=== PATIENT | male | born 1945 | race Hispanic/Latino ===

== ENCOUNTER → 2019-01-16 | Outpatient (CLI) | payer MEDICARE | END | disposition home or self-care (01) | LOC: RAH 12:46 | PROVIDERS: ATTEND Family Medicine | CPT/HCPCS: 71250 ==

== ENCOUNTER → 2019-01-18 | Outpatient (CLI) | payer MEDICARE | END | disposition home or self-care (01) | LOC: RAH 09:49 | PROVIDERS: ATTEND Family Medicine | DX: R10.13 Epigastric pain (principal) | CPT/HCPCS: 76700 ==

== ENCOUNTER → 2019-03-04 | Outpatient (CLI) | payer MEDICARE | END | disposition home or self-care (01) | LOC: OIH 11:19 | PROVIDERS: ATTEND Family Medicine | DX: K57.30 Diverticulosis of large intestine without perforation or abscess without bleeding (principal); N20.0 Calculus of kidney | CPT/HCPCS: 74176 ==

== ENCOUNTER 2020-10-21 16:30 | Inpatient (IN) | payer MEDICARE, OTHER ==
[~2020-10-21] VITALS: Ht 167.6 cm; Wt 57.4 kg
[2020-10-21] MEDS ORDERED: BISACODYL 10 MG SUPP.RECT RC ONE (16:48)
[2020-10-21 19:19] LABS: BASOPHILS % (AUTO) 0.8 % (0.0-5.0); EOSINOPHILS % (AUTO) 2.6 % (0.0-8.0); LYMPHOCYTES % (AUTO) 12.4 % (21.0-51.0); MEAN CORPUSCULAR HEMOGLOBIN 25.2 pg (27.0-33.0); MEAN CORPUSCULAR HGB CONC 27.3 g/dL (32.0-36.0); MEAN CORPUSCULAR VOLUME 92.3 fL (79-99); MONOCYTES % (AUTO) 3.8 % (3.0-13.0); NEUTROPHILS % (AUTO) 79.8 % (40.0-77.0); PLATELET COUNT (AUTO) 311 K/uL (130-400); RED BLOOD CELL COUNT(AUTO) 4.44 MIL/uL (4.50-6.20); RED CELL DISTRIBUTION WIDTH 20.7 % (11.0-15.5); WHITE BLOOD COUNT (AUTO) 14.3 K/uL (4.8-10.8)
[2020-10-21 19:26] LABS: CREATININE 2.6 mg/dL (0.5-1.5)
[2020-10-21] MEDS ORDERED: DEXTROSE 50%-WATER 50 ML DISP.SYRIN IV ONE ×2 (19:49→19:56)
[2020-10-21] MEDS ORDERED: DEXTROSE 10%-WATER 1,000 ML IV ONE (21:03)
[2020-10-21] MEDS ORDERED: SODIUM CHLORIDE 0.9% 500ML 500 ML IV ONE (21:03)
[2020-10-21 21:21] LABS: APPEARANCE,URINE Clear (CLEAR); BILIRUBIN,URINE Negative (NEGATIVE); COLOR,URINE Yellow (YELLOW); GLUCOSE, URINE (UA) >=1000 mg/dL (NEGATIVE); KETONES,URINE Negative (NEGATIVE); LEUKOCYTE ESTERASE ,URINE Negative (NEGATIVE); NITRATE,URINE Negative (NEGATIVE); OCCULT BLOOD,URINE Negative (NEGATIVE); PH,URINE 7.5 (5.0-8.0); PROTEIN,URINE POS 2+ mg/dL (NEGATIVE)
[2020-10-21 21:32] LABS: BACTERIA,URINE Few /HPF (None Seen); MUCUS,URINE Few LPF (None Seen); SQUAMOUS EPITHELIAL CELL,UR Few /HPF (0-2)
[2020-10-21] MEDS ORDERED: CEFTRIAXONE SODIUM 1 GM ONE (22:34)
[2020-10-22] MEDS ORDERED: ONDANSETRON HCL 4 MG/2 ML VIAL IV PRN
[2020-10-22] MEDS ORDERED: DIPHENHYDRAMINE HCL 25 MG CAPSULE PO PRN
[2020-10-22] MEDS ORDERED: ZOLPIDEM TARTRATE 5 MG TAB PO PRN
[2020-10-22] MEDS ORDERED: HYDRALAZINE HCL 20 MG/ML VIAL IV PRN
[2020-10-22] MEDS ORDERED: GUAIFENESIN-DM 200/20 MG 10 ML PO PRN
[2020-10-22] MEDS ORDERED: MAG HYDROX/AL HYDROX/SIMETH ES 30 ML SUSP UDCUP PO PRN
[2020-10-22] MEDS ORDERED: ACETAMINOPHEN 325 MG TAB PO PRN ×2
[2020-10-22] MEDS ORDERED: LACTULOSE 20 GM/30 ML UDCUP PO PRN
[2020-10-22] MEDS ORDERED: NITROGLYCERIN 0.4 MG SL TAB SL PRN
[2020-10-22] MEDS ORDERED: ACETAMINOPHEN-CODEINE 300/30MG TAB PO PRN ×2
[2020-10-22] MEDS ORDERED: CEFTRIAXONE SODIUM 1 GM IV SCH
[2020-10-22] MEDS ORDERED: BISACODYL 10 MG SUPP.RECT RC ONE
[2020-10-22] MEDS ORDERED: DEXTROSE 5 %-0.45 % NACL 1,000 ML IV SCH
[2020-10-22] MEDS ORDERED: DEXTROSE 50%-WATER 50 ML DISP.SYRIN IV PRN (00:15)
[2020-10-22] MEDS ORDERED: GLUCAGON 1MG KIT 1 MG ML IM PRN (00:15)
[2020-10-22] MEDS: ZOSYN 3.375GM+NS 50ML 50 ML IV SCH ×3 (00:30→23:23)
[2020-10-22] MEDS: DEXTROSE 5%-WATER 1,000 ML IV SCH ×2 (00:30→22:07)
[2020-10-22 01:17] LABS: CREATININE 2.6 mg/dL (0.5-1.5); POTASSIUM 3.9 mmol/L (3.5-5.1)
[2020-10-22] MEDS ORDERED: DEXTROSE 5%-WATER 1,000 ML IV ONE (01:48)
[2020-10-22] MEDS ORDERED: ZOSYN 3.375GM+NS 50ML 50 ML IV ONE ×2 (05:35→13:37)
[2020-10-22 05:37] LABS: BASOPHILS % (AUTO) 0.7 % (0.0-5.0); EOSINOPHILS % (AUTO) 3.2 % (0.0-8.0); MEAN CORPUSCULAR HEMOGLOBIN 24.8 pg (27.0-33.0); MEAN CORPUSCULAR HGB CONC 27.3 g/dL (32.0-36.0); MEAN CORPUSCULAR VOLUME 91.1 fL (79-99); MONOCYTES % (AUTO) 3.5 % (3.0-13.0); PLATELET COUNT (AUTO) 282 K/uL (130-400); RED BLOOD CELL COUNT(AUTO) 4.39 MIL/uL (4.50-6.20); RED CELL DISTRIBUTION WIDTH 20.7 % (11.0-15.5); WHITE BLOOD COUNT (AUTO) 11.7 K/uL (4.8-10.8)
[2020-10-22 05:52] LABS: CREATININE 2.4 mg/dL (0.5-1.5); POTASSIUM 3.7 mmol/L (3.5-5.1)
[2020-10-22] MEDS ORDERED: DEXTROSE 50%-WATER 50 ML DISP.SYRIN IV ONE ×2 (06:01→19:02)
[2020-10-22] MEDS: INSULIN HUMULIN R 100 UNIT/ML 3ML SQ SCH ×3 (07:30→16:30)
[2020-10-22] MEDS ORDERED: FAMOTIDINE/PF 20 MG/2 ML VIAL IV ONE (08:51)
[2020-10-22] MEDS ORDERED: ENOXAPARIN SODIUM 30 MG/0.3 ML SQ ONE (08:51)
[2020-10-22] MEDS ORDERED: ENOXAPARIN SODIUM 30 MG/0.3 ML SQ SCH (09:00)
[2020-10-22] MEDS: FAMOTIDINE/PF 20 MG/2 ML VIAL IV SCH ×2 (09:00→22:08)
[2020-10-22 10:15] LABS: BASOPHILS % (AUTO) 0.8 % (0.0-5.0); EOSINOPHILS % (AUTO) 3.3 % (0.0-8.0); HEMATOCRIT 38.6 % (42-54); LYMPHOCYTES % (AUTO) 8.8 % (21.0-51.0); MEAN CORPUSCULAR HGB CONC 27.5 g/dL (32.0-36.0); MONOCYTES % (AUTO) 4.4 % (3.0-13.0); NEUTROPHILS % (AUTO) 82.3 % (40.0-77.0); PLATELET COUNT (AUTO) 251 K/uL (130-400); RED BLOOD CELL COUNT(AUTO) 4.24 MIL/uL (4.50-6.20)
--- NOTE | 2020-10-22 10:43 | NUR ---
SPOKE TO SON JAMES ONT HE PHONE FOR DC PLANNING STATES PATIENT LIVES WITH SPOUSE, AND PRIOR TO CANCER DIAGNOSIS LAST MONTH, WAS INDEPENDENT, ACTIVE, NO DME EXCEPT SHOWER CHAIR, GOES TO [place] [facility] WHO HAS SET HIM UP WITH TRANSPORT CHAIR, HOSPITAL BED, 3 IN 1 CHAIR; HAS HOME [employer] FOR PEG TUBE AND PROVIDER FOR BATHING. FAMILY SUPPORTIVE AND PROVIDES TRANSPORT. SON UNDERSTANDS PATIENT IS VERY ILL. FAMILY IS WAITING FOR PEG SITE TO HEAL SO PATIENT CAN HAVE PALLIATIVE CHEMO . CM TO FOLLOW. ((CODE STATES/HOSPICE/ END OF LIFE NOT ADDRESSED DURING THIS CONVERSATION, CM DID ADVISE SON THAT CM/SW WOULD BE CONTACTING PT/FAMILY AGAIN FOR DISCHARGE PLANNING . PATIENT WITH CRITICAL ELECTROLYTES AND INCREASED METS ON THIS ADMISSION Addendum: 10/22/20 at 1051 by MARY GERARD RN CM Amended: Links added.
[2020-10-22 11:14] LABS: ALBUMIN 2.3 g/dL (3.5-5.0); BILIRUBIN,TOTAL 0.5 mg/dL (0.2-1.0); CREATININE 2.5 mg/dL (0.5-1.5); POTASSIUM 4.1 mmol/L (3.5-5.1); TOTAL PROTEIN, SERUM 7.1 g/dL (6.0-8.3)
[2020-10-22] MEDS ORDERED: VANCOMYCIN PROTOCOL PER PHARMACY IV SCH (12:00)
[2020-10-22] MEDS ORDERED: DIATR MEGLU/DIATRIZOATE SODIUM 30 ML BOTTLE ONE (12:01)
[2020-10-22 14:51] LABS: BASOPHILS % (AUTO) 1.2 % (0.0-5.0); EOSINOPHILS % (AUTO) 3.5 % (0.0-8.0); HEMATOCRIT 40.1 % (42-54); LYMPHOCYTES % (AUTO) 7.4 % (21.0-51.0); MEAN CORPUSCULAR HGB CONC 27.4 g/dL (32.0-36.0); MEAN CORPUSCULAR VOLUME 91.1 fL (79-99); MONOCYTES % (AUTO) 3.8 % (3.0-13.0); NEUTROPHILS % (AUTO) 83.7 % (40.0-77.0); NUCLEATED RED BLOOD CELLS 0.1 % (0.0-0.19); PLATELET COUNT (AUTO) 262 K/uL (130-400); RED CELL DISTRIBUTION WIDTH 20.6 % (11.0-15.5); WHITE BLOOD COUNT (AUTO) 14.7 K/uL (4.8-10.8)
[2020-10-22] MEDS: VANCOMYCIN 1GM+NS 250ML 250 ML IV SCH (15:00)
[2020-10-22 15:08] LABS: CREATININE 2.6 mg/dL (0.5-1.5)
[2020-10-22] MEDS: DOXYCYCLINE 100MG+NS 250ML 250 ML IV SCH (16:15)
[2020-10-22 16:29] LABS: ABG BASE EXCESS 4.3 mmol/L (-2.0-3.0); ABG HCO3 29.9 mmol/L (21.0-28.0); ABG OXYGEN SATURATION 86.7 % (95.0-99.0); ABG PCO2 48 mmHg (35-48)
[2020-10-22] MEDS ORDERED: VANCOMYCIN 1GM+NS 250ML 250 ML IV ONE (18:11)
[2020-10-22 18:30] LABS: BASOPHILS % (AUTO) 1.1 % (0.0-5.0); EOSINOPHILS % (AUTO) 3.5 % (0.0-8.0); HEMATOCRIT 42.2 % (42-54); LYMPHOCYTES % (AUTO) 9.3 % (21.0-51.0); MEAN CORPUSCULAR HEMOGLOBIN 25.1 pg (27.0-33.0); MEAN CORPUSCULAR HGB CONC 27.5 g/dL (32.0-36.0); MEAN CORPUSCULAR VOLUME 91.1 fL (79-99); MONOCYTES % (AUTO) 4.1 % (3.0-13.0); NEUTROPHILS % (AUTO) 81.5 % (40.0-77.0); PLATELET COUNT (AUTO) 287 K/uL (130-400); RED BLOOD CELL COUNT(AUTO) 4.63 MIL/uL (4.50-6.20); RED CELL DISTRIBUTION WIDTH 20.9 % (11.0-15.5); WHITE BLOOD COUNT (AUTO) 15.5 K/uL (4.8-10.8)
[2020-10-22 18:41] LABS: CREATININE 2.7 mg/dL (0.5-1.5); POTASSIUM 4.3 mmol/L (3.5-5.1)
[2020-10-22 20:40] VITALS: BP 140/67
[2020-10-22 23:10] VITALS: BP 124/66
[2020-10-23 03:20] VITALS: BP 130/78
[2020-10-23 03:41] LABS: CREATININE 2.8 mg/dL (0.5-1.5); POTASSIUM 4.2 mmol/L (3.5-5.1)
[2020-10-23] MEDS ORDERED: DOXYCYCLINE 100MG+NS 250ML 250 ML IV ONE (05:00)
[2020-10-23] MEDS: DOXYCYCLINE 100MG+NS 250ML 250 ML IV SCH ×2 (05:28→15:58)
[2020-10-23] MEDS: INSULIN HUMULIN R 100 UNIT/ML 3ML SQ SCH ×5 (05:30→23:50)
[2020-10-23 07:04] LABS: BASOPHILS % (AUTO) 1.3 % (0.0-5.0); EOSINOPHILS % (AUTO) 4.2 % (0.0-8.0); HEMATOCRIT 39.3 % (42-54); MEAN CORPUSCULAR HGB CONC 27.5 g/dL (32.0-36.0); MONOCYTES % (AUTO) 3.4 % (3.0-13.0); NEUTROPHILS % (AUTO) 80.4 % (40.0-77.0); PLATELET COUNT (AUTO) 238 K/uL (130-400); RED BLOOD CELL COUNT(AUTO) 4.32 MIL/uL (4.50-6.20); RED CELL DISTRIBUTION WIDTH 20.5 % (11.0-15.5); WHITE BLOOD COUNT (AUTO) 12.3 K/uL (4.8-10.8)
[2020-10-23 07:17] LABS: APPEARANCE,URINE CLEAR (CLEAR); BILIRUBIN,URINE NEGATIVE (NEGATIVE); COLOR,URINE YELLOW (YELLOW); GLUCOSE, URINE (UA) NEGATIVE (NEGATIVE); KETONES,URINE NEGATIVE (NEGATIVE); LEUKOCYTE ESTERASE ,URINE TRACE (NEGATIVE); NITRATE,URINE NEGATIVE (NEGATIVE); OCCULT BLOOD,URINE SMALL (NEGATIVE); PROTEIN,URINE 100 mg/dL (NEGATIVE); UROBILINOGEN,URINE 0.2 mg/dL (0.2-1.0)
[2020-10-23 07:25] LABS: BILIRUBIN,TOTAL 0.6 mg/dL (0.2-1.0); CREATININE 2.9 mg/dL (0.5-1.5); MAGNESIUM 2.7 mg/dL (1.80-2.40); PHOSPHORUS 6.1 mg/dL (2.5-4.9); POTASSIUM 4.3 mmol/L (3.5-5.1); TOTAL PROTEIN, SERUM 6.4 g/dL (6.0-8.3)
[2020-10-23 07:25] LABS: CHLORIDE,URINE RANDOM 30 mmol/L (110-250); POTASSIUM,URINE RANDOM 57 mmol/L (25-125); SODIUM,URINE RANDOM 30 mmol/l (40-220)
[2020-10-23 07:57] LABS: AMORPHOUS SEDIMENT,UR Few /LPF (None Seen); BACTERIA,URINE Few /HPF (None Seen); FINE GRANULAR CASTS,URINE 0-2 /LPF (None Seen); RBC,URINE 0-1 /HPF (0-1); SQUAMOUS EPITHELIAL CELL,UR 0-2 /HPF (0-2)
[2020-10-23 08:00] VITALS: BP 149/59
[2020-10-23] MEDS: THIAMINE HCL 100 MG/ML 2ML VIAL IVP SCH (09:13)
[2020-10-23] MEDS: PANTOPRAZOLE 40 MG/VIAL IVP SCH (09:13)
[2020-10-23 09:52] LABS: MEAN CORPUSCULAR HEMOGLOBIN 24.9 pg (27.0-33.0); MEAN CORPUSCULAR HGB CONC 27.6 g/dL (32.0-36.0); RED BLOOD CELL COUNT(AUTO) 4.22 MIL/uL (4.50-6.20); RED CELL DISTRIBUTION WIDTH 20.6 % (11.0-15.5); WHITE BLOOD COUNT (AUTO) 11.4 K/uL (4.8-10.8)
[2020-10-23 10:04] LABS: POTASSIUM 4.2 mmol/L (3.5-5.1)
--- NOTE | 2020-10-23 10:43 | NUR ---
DR. Cindy RAMIREZ IN ROOM SPEAKING WITH PT. RE:PLAN OF CARE, QUESTIONS ANSWERED. PT. DOES NOT WISH HOSPICE, PER DR. KRAUSE.
[2020-10-23 12:00] VITALS: BP 123/70
[2020-10-23] MEDS: ZOSYN 3.375GM+NS 50ML 50 ML IV SCH ×2 (12:11→23:48)
--- NOTE | 2020-10-23 12:12 | NUR ---
CM NOTE/[facility] [place] [facility] MET WITH PATIENT AND SON, JAMES, AT BEDSIDE. PER PATIENT AND SON, DECLINING HOSPICE SERVICES AT THE MOMENT AND WISHING TO CONTINUE WITH [facility]. ERICK COMPLETED FOR [facility] [place] [facility]. PER RAISA AT [facility], PATIENT ACCEPTED A RETURN TO SERVICE. CLINICAL PACKET FAXED TO [phone]. PATIENT TO DC HOME VIA PRIVATE VEHICLE UNDER CARE OF FAMILY AND HOME HEALTH, POSSIBLE DC HOME IN 24-48HR D/T ELECTROLYTE DISFUNCTION. PRIMARY NURSE, JOSE JUAN ANDRES, AWARE OF DC PLAN.
--- NOTE | 2020-10-23 12:16 | NUR ---
CM NOTE/ALTERNATIVE PHONE NUMBERS PER SON, JAMES CLEMENTE JR, MAY REACH OUT TO PATIENTS SPOUSE CELL PHONE AT [phone]. ALTERNATIVE NEXT OF KIN #3 IS MALVIN CLEMENTE, PATIENTS OTHER SON, .
[2020-10-23] MEDS: DEXTROSE 5%-WATER 1,000 ML IV SCH (13:17)
[2020-10-23 14:07] LABS: HEMATOCRIT 38.6 % (42-54)
[2020-10-23 14:21] LABS: CREATININE 3.3 mg/dL (0.5-1.5); POTASSIUM 4.2 mmol/L (3.5-5.1)
[2020-10-23 16:00] VITALS: BP 123/75
--- NOTE | 2020-10-23 17:18 | NUR ---
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 AWAITING RESPONSE.
[2020-10-23 18:09] LABS: HEMATOCRIT 39.8 % (42-54)
[2020-10-23 18:23] LABS: CREATININE 3.4 mg/dL (0.5-1.5); POTASSIUM 4.3 mmol/L (3.5-5.1)
--- NOTE | 2020-10-23 19:45 | NUR ---
PM Assessment Received pt awake in bed with son t the bedside who brought in their own feeding formula Osmolite 1.5cal. Initiated as per report OK to start with home formula at 20cc/hr increase by 10cc every 5 hours per son at the bedside stated max rate at home is as 55cc/hr. I did explained to the pt & son that we will be giving the pt water flushes Q 6 hours 150cc & continue with H&H, electrolytes monitoring as ordered, due to elevated NA, BUN/Crea. I verified with the son if they have Hydrofera blue that is being use for the mid abdomen incision open wound. Per son stated that the home health takes care of it. dressing re-inforce as it got loosen. J tube surrounding puncture site slightly irritated, cleansed with NS as noted with some gastric drainage, pat dry, cover with 4x4 & slit gauze secure with Medipore tape, J tube secured with a silk suture in place & secured well too with Medipore tape. Per son stated he is looking forward for the pt to start chemo as planed by Dr. Vallejo. Pt currently denies discomfort, aware nothing by mouth, he does his own mouth care by using a swab. Pt also agreed to use a BSC as this time he is connected to a feeding pump & with D5W at 75cc/hr infusing well.
[2020-10-23 20:27] VITALS: BP 138/84
[2020-10-23 21:50] LABS: HEMATOCRIT 37.7 % (42-54)
[2020-10-23 22:02] LABS: CREATININE 3.5 mg/dL (0.5-1.5); POTASSIUM 4.4 mmol/L (3.5-5.1)
[2020-10-23 23:28] VITALS: BP 122/56
[2020-10-24] VITALS (7 sets, daily range): BP systolic 112–126; BP diastolic 65–75
[2020-10-24] MEDS: DEXTROSE 5%-WATER 1,000 ML IV SCH ×2 (00:21→13:21)
--- NOTE | 2020-10-24 02:00 | NUR ---
Re: Osmolite feeding Osmolite 1.5cal feeding via J tube increased to 30cc/hr as ordered. No nausea/ vomiting noted so far.
[2020-10-24 02:02] LABS: HEMATOCRIT 37.1 % (42-54)
[2020-10-24 02:14] LABS: CREATININE 3.7 mg/dL (0.5-1.5); POTASSIUM 3.8 mmol/L (3.5-5.1)
[2020-10-24] MEDS: DOXYCYCLINE 100MG+NS 250ML 250 ML IV SCH ×2 (04:06→17:09)
[2020-10-24] MEDS: INSULIN HUMULIN R 100 UNIT/ML 3ML SQ SCH ×5 (06:00→22:30)
[2020-10-24 08:22] LABS: BASOPHILS % (AUTO) 0.9 % (0.0-5.0); EOSINOPHILS % (AUTO) 4.7 % (0.0-8.0); LYMPHOCYTES % (AUTO) 10.4 % (21.0-51.0); MEAN CORPUSCULAR HEMOGLOBIN 24.8 pg (27.0-33.0); MEAN CORPUSCULAR HGB CONC 28.3 g/dL (32.0-36.0); MEAN CORPUSCULAR VOLUME 87.7 fL (79-99); MONOCYTES % (AUTO) 3.5 % (3.0-13.0); NEUTROPHILS % (AUTO) 79.6 % (40.0-77.0); NUCLEATED RED BLOOD CELLS 0.2 % (0.0-0.19); PLATELET COUNT (AUTO) 241 K/uL (130-400); RED BLOOD CELL COUNT(AUTO) 3.99 MIL/uL (4.50-6.20); RED CELL DISTRIBUTION WIDTH 19.9 % (11.0-15.5); WHITE BLOOD COUNT (AUTO) 9.9 K/uL (4.8-10.8)
[2020-10-24 08:38] LABS: ALBUMIN 1.9 g/dL (3.5-5.0); BILIRUBIN,TOTAL 0.5 mg/dL (0.2-1.0); CREATININE 3.6 mg/dL (0.5-1.5); POTASSIUM 3.9 mmol/L (3.5-5.1); TOTAL PROTEIN, SERUM 5.9 g/dL (6.0-8.3)
[2020-10-24] MEDS: THIAMINE HCL 100 MG/ML 2ML VIAL IVP SCH (09:30)
[2020-10-24] MEDS: PANTOPRAZOLE 40 MG/VIAL IVP SCH (09:30)
[2020-10-24] MEDS: ZOSYN 3.375GM+NS 50ML 50 ML IV SCH (11:56)
--- NOTE | 2020-10-24 14:00 | NUR ---
DR. WYNN IN ROOM SPEAKING WITH PT.
--- NOTE | 2020-10-24 14:16 | NUR ---
RD NOTIFICATION Pt admitted due to electrolyte imbalance. Pt has hx of stomach cancer. As per EMR pt is having tarry stools. LBM 10/24/20. Pt is currently has J-tube with home formula of Osmolite 1.5 running at 30 ml/hr Pt's max rate at home is of 55 ml/hr as per EMR. Pt has CKD as per EMR. Creatinine is of 3.7, GFR 17 Pt's BMI of 20.2 is low for age. Pt has mild-moderate fat/muscle loss Pt is at mild-moderate risk for malnutrition. TF RECOMMENDATIONS FAXED TO [address] RECOMMENDATION: When medically feasible, recommendation of Suplena 1.8 feedings instead of Osmolite due to reduced kidney function Goal rate: 50 ml/hr Water flush recommendation: 155 ml Q4. Monitor electrolytes, hydration and TF tolerance. LABS: BUN 8, NA 153, K 3.8, CL 117, BG 157, TOT CA 8.2, HGB 9.9, ALB 2.0, TOT PRO 6.4 Addendum: 10/24/20 at [address] Amended: Links added.
--- NOTE | 2020-10-24 14:42 | NUR ---
ASSISTED OUT OF BED TO RECLINER AT BEDSIDE PER PT. REQUEST. CALL LIGHT WITHIN REACH, INSTRUCTED ON USE AND VERBALIZED UNDERSTANDING. ROOM DOOR OPEN, VISIBLE FROM NURSE'S STATION.
[2020-10-24] MEDS: VANCOMYCIN 1GM+NS 250ML 250 ML IV SCH (15:07)
--- NOTE | 2020-10-24 16:10 | NUR ---
ASSISTED BACK TO BED FROM RECLINER PER PT. REQUEST. CALL LIGHT WITHIN REACH, VERBALIZED ABILITY TO USE. SPOUSE AT BESIDE.
[2020-10-24] MEDS: INSULIN GLARGINE 100 UNITS/ML 10 ML VIAL SQ SCH (22:30)
[2020-10-25] MEDS: ZOSYN 3.375GM+NS 50ML 50 ML IV SCH ×2 (01:16→12:02)
[2020-10-25] MEDS: DEXTROSE 5%-WATER 1,000 ML IV SCH ×3 (01:16→16:35)
[2020-10-25 04:00] VITALS: BP 127/62
[2020-10-25] MEDS: DOXYCYCLINE 100MG+NS 250ML 250 ML IV SCH ×2 (04:45→16:36)
[2020-10-25] MEDS: INSULIN HUMULIN R 100 UNIT/ML 3ML SQ SCH ×5 (05:06→18:00)
[2020-10-25 05:55] LABS: BASOPHILS % (AUTO) 0.7 % (0.0-5.0); EOSINOPHILS % (AUTO) 3.9 % (0.0-8.0); HEMATOCRIT 33.1 % (42-54); MEAN CORPUSCULAR HEMOGLOBIN 25.1 pg (27.0-33.0); MEAN CORPUSCULAR HGB CONC 28.7 g/dL (32.0-36.0); MEAN CORPUSCULAR VOLUME 87.3 fL (79-99); MONOCYTES % (AUTO) 3.5 % (3.0-13.0); NEUTROPHILS % (AUTO) 79.8 % (40.0-77.0); NUCLEATED RED BLOOD CELLS 0.3 % (0.0-0.19); PLATELET COUNT (AUTO) 243 K/uL (130-400); RED BLOOD CELL COUNT(AUTO) 3.79 MIL/uL (4.50-6.20); RED CELL DISTRIBUTION WIDTH 19.5 % (11.0-15.5); WHITE BLOOD COUNT (AUTO) 10.5 K/uL (4.8-10.8)
[2020-10-25 06:24] LABS: ALBUMIN 1.7 g/dL (3.5-5.0); BILIRUBIN,TOTAL 0.4 mg/dL (0.2-1.0); CREATININE 3.3 mg/dL (0.5-1.5); POTASSIUM 3.7 mmol/L (3.5-5.1); TOTAL PROTEIN, SERUM 5.5 g/dL (6.0-8.3)
[2020-10-25 07:21] VITALS: BP 126/64
[2020-10-25] MEDS: THIAMINE HCL 100 MG/ML 2ML VIAL IVP SCH (09:30)
[2020-10-25] MEDS: PANTOPRAZOLE 40 MG/VIAL IVP SCH (09:30)
[2020-10-25 10:45] VITALS: BP 119/64
--- NOTE | 2020-10-25 10:45 | NUR ---
Dr. Cindy Pizarro in room informing pt. and pt.'s spouse at bedside Re:plan of care, EXTENSIVELY and ALL questions answered, verbalized mutual understanding. Pt. and spouse verbalized NO additional questions at this time. This nurse present and served as conference interpreter.
--- NOTE | 2020-10-25 11:16 | NUR ---
David LYNCH NP, IN ROOM SPEAKING WITH PT. AND PT.'S SPOUSE AT BEDSIDE RE:PLAN OF CARE. QUESTIONS ANSWERED BY PROFESSIONAL NURSING ASSISTANT.
[2020-10-25 15:41] VITALS: BP 111/59
[2020-10-25 18:11] LABS: CREATININE 3.1 mg/dL (0.5-1.5); POTASSIUM 3.6 mmol/L (3.5-5.1)
[2020-10-25 20:06] VITALS: BP 114/56
[2020-10-25] MEDS: INSULIN GLARGINE 100 UNITS/ML 10 ML VIAL SQ SCH (21:39)
[2020-10-25 23:39] VITALS: BP 104/56
[2020-10-26] MEDS: ZOSYN 3.375GM+NS 50ML 50 ML IV SCH (00:45)
[2020-10-26] MEDS: INSULIN HUMULIN R 100 UNIT/ML 3ML SQ SCH ×4 (00:46→18:00)
[2020-10-26 03:50] VITALS: BP 109/55
[2020-10-26 05:25] LABS: BASOPHILS % (AUTO) 0.5 % (0.0-5.0); EOSINOPHILS % (AUTO) 2.5 % (0.0-8.0); HEMATOCRIT 33.7 % (42-54); LYMPHOCYTES % (AUTO) 8.9 % (21.0-51.0); MEAN CORPUSCULAR HEMOGLOBIN 24.9 pg (27.0-33.0); MEAN CORPUSCULAR HGB CONC 28.8 g/dL (32.0-36.0); MEAN CORPUSCULAR VOLUME 86.4 fL (79-99); NEUTROPHILS % (AUTO) 82.1 % (40.0-77.0); PLATELET COUNT (AUTO) 250 K/uL (130-400); RED CELL DISTRIBUTION WIDTH 19.4 % (11.0-15.5); WHITE BLOOD COUNT (AUTO) 12.8 K/uL (4.8-10.8)
[2020-10-26] MEDS: DEXTROSE 5%-WATER 1,000 ML IV SCH ×2 (05:34→19:35)
[2020-10-26 05:55] LABS: ALBUMIN 1.6 g/dL (3.5-5.0); BILIRUBIN,TOTAL 0.4 mg/dL (0.2-1.0); CREATININE 2.9 mg/dL (0.5-1.5); MAGNESIUM 1.9 mg/dL (1.80-2.40); POTASSIUM 3.5 mmol/L (3.5-5.1); TOTAL PROTEIN, SERUM 5.7 g/dL (6.0-8.3)
[2020-10-26 09:21] VITALS: BP 112/55
--- NOTE | 2020-10-26 10:00 | NUR ---
DYSPHAGIA EVAL COMPLETED. RECOMMEND PLEASURE FEEDS OF PUREED AND HONEY-THICK LIQUIDS. RECOMMENDATIONS: DYSPHAGIA THERAPY 1-5X WEEK TO INCREASE PHARYNGEAL SWALLOW: LTG#1: Pt WILL TOLERATE LEAST RESTRICTIVE DIET TO MEET NUTRITION/HYDRATION WITH NO S/S OF ASPIRATION. LTG#2: SKILLED EDUCATION Pt/FAMILY/STAFF STG#1: Pt WILL PARTICIPATE IN PLEASURE FEEDS OF PUREED, HONEY-THICK LIQUIDS WITH NO S/S OF ASPIRATION. STG#2: PT WILL BE ABLE TO PARTICIPATE IN MBSS AFTER 2-4 WEEKS OF THERAPEUTIC INTERVENTION. STG#3: SKILLED EDUCATION Pt/FAMILY/STAFF. STG#4: Pt WILL UTILIZE SAFE SWALLOW PRECAUTIONS INDEPENDENTLY WITH 100% ACCURACY. LAST MBSS AT [facility] RECOMMENDED MECHANICAL SOFT, HONEY-THICK LIQUIDS. COSTUMER TO ATTEMPT TO RESUME PLEASURE FEEDS OF HONEY-THICK LIQUIDS. COSTUMER COORDINATED CARE WITH NURSE RODRIGUEZ, Pt AND . ALL QUESTIONS ANSWERED AT THIS TIME. Addendum: 10/26/20 at [address] Amended: Links added.
[2020-10-26] MEDS: THIAMINE HCL 100 MG/ML 2ML VIAL IVP SCH (11:00)
[2020-10-26] MEDS: PANTOPRAZOLE 40 MG/VIAL IVP SCH (11:00)
[2020-10-26 12:04] VITALS: BP 113/44
--- NOTE | 2020-10-26 15:55 | NUR ---
RD FOLLOW UP Pt is currently on Suplena 1.8 at 50 ml/hr Water flush 150 ml Q4 as per RN Pt tolerating J-tube feedings. Pt is having watery/loose stools 2x since AM shift. As per pt he was having watery stools at home. Pt is on IV fluids and water flush. Sodium and Chloride are trending down As per EMR, pt was receiving 150 ml QD water flush at home. As per EMR pt has had a 60 lb wt loss in 6 months. 31% wt change in 6 months = severe unintentional wt loss 69 %UBW= Severe malnutrition RD RECOMMENDATION: Continue current TF regiment at 50 ml/hr Adjust water flush as medically necessary As per VIDEO PRODUCTION SPECIALIST, pt is allowed pleasure feeds of puree consistency with honey thick liquids Monitor for signs of aspiration with pleasure feedings RD will continue to follow LABS: NA 148, CL 111, ALB 1.6, TOT PRO 5.7, BG 118, TOT CA 7.8, GFR 23, CREAT 2.9 Addendum: 10/26/20 at [address] Amended: Links added.
[2020-10-26 16:29] VITALS: BP 109/48
[2020-10-26 16:53] LABS: CREATININE 2.8 mg/dL (0.5-1.5); POTASSIUM 3.8 mmol/L (3.5-5.1)
--- NOTE | 2020-10-26 17:00 | NUR ---
DR WAKEFIELD AWARE OF CONSULT, STATES WILL SPEAK TO DR VEGA
[2020-10-26 20:02] VITALS: BP 113/67
[2020-10-26] MEDS: INSULIN GLARGINE 100 UNITS/ML 10 ML VIAL SQ SCH (21:00)
[2020-10-26] MEDS: AMOXICILLIN 250 MG/5 ML 80ML BOTTLE JT SCH (22:33)
[2020-10-26 23:07] VITALS: BP 124/64
[2020-10-27 04:13] VITALS: BP 133/57
[2020-10-27 05:25] LABS: BASOPHILS % (AUTO) 0.5 % (0.0-5.0); EOSINOPHILS % (AUTO) 2.2 % (0.0-8.0); HEMATOCRIT 29.2 % (42-54); LYMPHOCYTES % (AUTO) 8.2 % (21.0-51.0); MEAN CORPUSCULAR HEMOGLOBIN 24.9 pg (27.0-33.0); MEAN CORPUSCULAR HGB CONC 29.1 g/dL (32.0-36.0); MEAN CORPUSCULAR VOLUME 85.6 fL (79-99); MONOCYTES % (AUTO) 3.9 % (3.0-13.0); NEUTROPHILS % (AUTO) 83.7 % (40.0-77.0); PLATELET COUNT (AUTO) 238 K/uL (130-400); RED BLOOD CELL COUNT(AUTO) 3.41 MIL/uL (4.50-6.20); RED CELL DISTRIBUTION WIDTH 19.5 % (11.0-15.5); WHITE BLOOD COUNT (AUTO) 13.1 K/uL (4.8-10.8)
[2020-10-27 05:46] LABS: ALBUMIN 1.5 g/dL (3.5-5.0); BILIRUBIN,TOTAL 0.2 mg/dL (0.2-1.0); CREATININE 2.6 mg/dL (0.5-1.5); POTASSIUM 3.6 mmol/L (3.5-5.1); TOTAL PROTEIN, SERUM 5.3 g/dL (6.0-8.3)
[2020-10-27] MEDS: AMOXICILLIN 250 MG/5 ML 80ML BOTTLE JT SCH (06:26)
[2020-10-27] MEDS: INSULIN HUMULIN R 100 UNIT/ML 3ML SQ SCH ×3 (07:19→12:00)
[2020-10-27 08:00] VITALS: BP 101/57
[2020-10-27] MEDS: DEXTROSE 5%-WATER 1,000 ML IV SCH (08:55)
[2020-10-27] MEDS: PANTOPRAZOLE 40 MG/VIAL IVP SCH (10:39)
[2020-10-27] MEDS: THIAMINE HCL 100 MG/ML 2ML VIAL IVP SCH (10:39)
[2020-10-27 11:00] VITALS: BP 138/53
[2020-10-27] MEDS ORDERED: AMOX250L PEG (14:08)
--- NOTE | 2020-10-27 15:03 | NUR ---
DYSPHAGIA TREATMENT COMPLETED. RECOMMEND PLEASURE FEEDS OF PUREED AND HONEY-THICK LIQUIDS. S: Pt RAISED TO 90 DEGREES IN BED DURING THE SESSION. PRESENT AT BEDSIDE DURING THE TREATMENT SESSION. O: DYSPHAGIA THERAPY TARGETING PHARYNGEAL SWALLOW: LTG#1: Pt WILL TOLERATE LEAST RESTRICTIVE DIET TO MEET NUTRITION/HYDRATION WITH NO S/S OF ASPIRATION. LTG#2: SKILLED EDUCATION Pt/FAMILY/STAFF STG#1: Pt WILL PARTICIPATE IN PLEASURE FEEDS OF PUREED, HONEY-THICK LIQUIDS WITH NO S/S OF ASPIRATION: x10 WITH NO OVERT S/S OF ASPIRATION DURING ALL TRIALS. STG#2: PT WILL BE ABLE TO PARTICIPATE IN MBSS AFTER 2-4 WEEKS OF THERAPEUTIC INTERVENTION: NOT TARGETED STG#3: SKILLED EDUCATION Pt/FAMILY/STAFF: COMPLETED WITH Pt AND . STG#4: Pt WILL UTILIZE SAFE SWALLOW PRECAUTIONS INDEPENDENTLY WITH 100% ACCURACY: VERBALIZED COMPLIACE ABLE TO VERBALIZE SAFE SWALLOW PRECAUTION A: Pt TOLERATED THERAPEUTIC TRIALS WITH NO OVERT S/S OF ASPIRATION. P: RECOMMEND CONTINUED SKILLED SPEECH THERAPY 1-5XWK. RN ANESTHETIST PROVIDED EDUCATION AND INSTRUCTION TO Pt AND ON CONTINUING PLEASURE FEEDINGS IN THE HOME SETTING. ALL QUESTIONS ANSWERED AT THIS TIME. Addendum: 10/27/20 at 1508 by FREDERIC KAPLAN [facility] Amended: Links added.
--- NOTE | 2020-10-27 16:00 | NUR ---
DRSG CHANGED TO JTUBE SITE ; PT MADE AWARE TO KEEP AREA CLEAN AND DRY. SLIGHT REDNESS, LESS, NO DRAINAGE NOTED
--- NOTE | 2020-10-27 16:30 | NUR ---
FC DISCONTINUED, TOLERATED WELL. DUE TO VOID
--- NOTE | 2020-10-27 19:00 | NUR ---
PT AWAKE AND ALERT, VOIDED 150 CC YELLOW URINE. DC HOME INSTRUCTIONS GIVEN TO PT, AWARE RX SENT TO PHARMACY ELECTRONICALLY. MADE AWARE TO DIAL 911 OR RETURN TO ER IN CASE OF EMERGENCY. PT ACKNOWLEDGED ALL DC HOME INSTRUCTIONS, ALL OF PT'S QUESTIONS ANSWERED.
--- NOTE | 2020-10-28 15:55 | NUR ---
Transitional Care - Post Discharge Note Spoke with patient at number listed. As per Mr Naren, he is doing well. He states he has followed up with Dr Correia today, and he has an appointment with his PCP tomorrow. He is taking discharge medications as ordered. No complaints of pain, fevers, N/V/D reported. Addendum: 10/28/20 at 1559 by NAYLA GARCIA Amended: Links added.
[2020-11-05] MEDS ORDERED: METF-444 PO (02:52)
[2020-11-05] MEDS ORDERED: PROP80CA2 PO (02:52)
[2020-11-05] MEDS ORDERED: GLIP5TAB11 PO (02:52)
[2020-11-06] MEDS ORDERED: INSU100V12 SQ (18:00)
[2020-11-08] MEDS ORDERED: LEVO500T89 PO (15:09)
== END 2020-10-27 19:43 | disposition home health service (06) | DRG 871 ==
LOC: EDH 16:30 → INTOOBSV 23:54 → OBSVTOIN 23:54 → EDHIP 23:54 → 4CH 10-22 20:23
PROVIDERS: ADMIT Internal Medicine; ATTEND Internal Medicine
DX: A41.9 Sepsis, unspecified organism (principal); J18.9 Pneumonia, unspecified organism; E43 Unspecified severe protein-calorie malnutrition; K57.31 Diverticulosis of large intestine without perforation or abscess with bleeding; E87.0 Hyperosmolality and hypernatremia; N17.9 Acute kidney failure, unspecified; C16.9 Malignant neoplasm of stomach, unspecified; C78.7 Secondary malignant neoplasm of liver and intrahepatic bile duct; K94.22 Gastrostomy infection; C78.00 Secondary malignant neoplasm of unspecified lung; L02.211 Cutaneous abscess of abdominal wall; T81.30XA Disruption of wound, unspecified, initial encounter; E87.8 Other disorders of electrolyte and fluid balance, not elsewhere classified; E11.65 Type 2 diabetes mellitus with hyperglycemia; Z66 Do not resuscitate; E11.22 Type 2 diabetes mellitus with diabetic chronic kidney disease; E11.649 Type 2 diabetes mellitus with hypoglycemia without coma; I12.9 Hypertensive chronic kidney disease with stage 1 through stage 4 chronic kidney disease, or unspecified chronic kidney disease; N18.9 Chronic kidney disease, unspecified; D64.9 Anemia, unspecified; E03.9 Hypothyroidism, unspecified; E78.5 Hyperlipidemia, unspecified; E86.0 Dehydration; E87.5 Hyperkalemia; F17.200 Nicotine dependence, unspecified, uncomplicated; F41.9 Anxiety disorder, unspecified; I25.10 Atherosclerotic heart disease of native coronary artery without angina pectoris; K59.00 Constipation, unspecified; N40.0 Benign prostatic hyperplasia without lower urinary tract symptoms; R13.12 Dysphagia, oropharyngeal phase; Z20.828 Contact with and (suspected) exposure to other viral communicable diseases; B95.2 Enterococcus as the cause of diseases classified elsewhere; K44.9 Diaphragmatic hernia without obstruction or gangrene; Z86.73 Personal history of transient ischemic attack (TIA), and cerebral infarction without residual deficits; Z87.442 Personal history of urinary calculi; Z95.5 Presence of coronary angioplasty implant and graft; Z68.20 Body mass index [BMI] 20.0-20.9, adult; Y83.3 Surgical operation with formation of external stoma as the cause of abnormal reaction of the patient, or of later complication, without mention of misadventure at the time of the procedure; Y92.89 Other specified places as the place of occurrence of the external cause
CPT/HCPCS: 36415; 36600; 70450; 71045; 74018; 74021; 74176; 76770; 80048; 80053; 81001; 82270; 82436; 82803; 82948; 83735; 83935; 84100; 84133; 84300; 84550; 85014; 85018; 85025; 85027; 87040; 87070; 87076; 87077; 87088; 87186; 87426; 92526; 92610; 93005; C9113; G0378; J0696; J1650; J1815; J2405; J2543; J3370; J3411; J3490; J7040; J7070; Q9963; U0003

== ENCOUNTER 2020-11-14 12:52 | Inpatient (IN) | payer MEDICARE, OTHER ==
[~2020-11-14] VITALS: Ht 167.6 cm; Wt 63.5 kg
[~2020-11-14 12:52] MED LIST: INSU100V12 SQ; LEVO500T89 PO
[2020-11-14] MEDS ORDERED: SODIUM CHLORIDE 0.9% 1000ML 1,000 ML IV ONE (13:32)
[2020-11-14] MEDS ORDERED: CEFTRIAXONE SODIUM 1 GM ONE (13:44)
[2020-11-14] MEDS ORDERED: AZITHROMYCIN 250 MG TABLET PO ONE (13:44)
[2020-11-14 13:51] LABS: BASOPHILS % (AUTO) 0.1 % (0.0-5.0); EOSINOPHILS % (AUTO) 0.4 % (0.0-8.0); HEMATOCRIT 21.4 % (42-54); LYMPHOCYTES % (AUTO) 2.8 % (21.0-51.0); MEAN CORPUSCULAR HEMOGLOBIN 26.8 pg (27.0-33.0); MEAN CORPUSCULAR VOLUME 92.6 fL (79-99); MONOCYTES % (AUTO) 3.5 % (3.0-13.0); NEUTROPHILS % (AUTO) 90.4 % (40.0-77.0); NUCLEATED RED BLOOD CELLS 0.4 % (0.0-0.19); PLATELET COUNT (AUTO) 399 K/uL (130-400); RED BLOOD CELL COUNT(AUTO) 2.31 MIL/uL (4.50-6.20)
[2020-11-14 13:58] LABS: WHITE BLOOD COUNT (AUTO) 34.1 K/uL (4.8-10.8)
[2020-11-14 14:02] LABS: ALBUMIN 1.6 g/dL (3.5-5.0); BILIRUBIN,TOTAL 0.5 mg/dL (0.2-1.0); CREATININE 4.6 mg/dL (0.5-1.5); TOTAL PROTEIN, SERUM 5.9 g/dL (6.0-8.3)
[2020-11-14 14:18] LABS: POTASSIUM 6.5 mmol/L (3.5-5.1)
[2020-11-14] MEDS ORDERED: DEXAMETHASONE SOD PHOSPHATE 10MG/ML 1ML VIAL ONE (14:38)
[2020-11-14 14:57] LABS: BAND NEUTROPHILS % (MANUAL) 7 % (0-2); LYMPHOCYTES % (MANUAL) 3 % (22-44); MONOCYTES % (MANUAL) 3 % (2-9); REACTIVE LYMPHOCYTES 1 % (0-0); SEGMENTED NEUTROPHILS % 86 % (40-70)
[2020-11-14 14:58] LABS: MAN.DIFF COMMENT-IMPRESSION MANUAL DIFFERENTIAL
[2020-11-14] MEDS ORDERED: ALBUTEROL INHALER 90MCG/INH IH ONE (15:07)
[2020-11-14] MEDS ORDERED: SODIUM POLYSTYRENE SULFONATE 15 GM/60 ML ML ONE (15:07)
[2020-11-14] MEDS ORDERED: DEXTROSE 50%-WATER 50 ML DISP.SYRIN IV ONE ×2 (15:07→17:17)
[2020-11-14] MEDS ORDERED: INSULIN HUMULIN R 100 UNIT/ML 3ML ONE (15:08)
[2020-11-14] MEDS ORDERED: NOREPINEPHRINE 4MG/NS 250ML 250 ML IV PRN ×2 (17:15→20:15)
[2020-11-14] MEDS ORDERED: MORPHINE SULFATE 4 MG/1ML SYG IVP PRN (17:15)
[2020-11-14] MEDS ORDERED: ONDANSETRON HCL 4 MG/2 ML VIAL IVP PRN (17:15)
[2020-11-14] MEDS ORDERED: LACTATED RINGERS 1000ML 1,000 ML IV SCH (17:15)
[2020-11-14] MEDS: LINEZOLID 600 MG/ISO-OSM 300 ML IV SCH (17:15)
[2020-11-14] MEDS ORDERED: MORPHINE SULFATE 2 MG/ML 1ML SYG IVP PRN (17:15)
[2020-11-14 18:43] LABS: APPEARANCE,URINE CLOUDY (CLEAR); BILIRUBIN,URINE NEGATIVE (NEGATIVE); COLOR,URINE YELLOW (YELLOW); GLUCOSE, URINE (UA) NEGATIVE (NEGATIVE); KETONES,URINE NEGATIVE (NEGATIVE); LEUKOCYTE ESTERASE ,URINE NEGATIVE (NEGATIVE); NITRATE,URINE NEGATIVE (NEGATIVE); OCCULT BLOOD,URINE NEGATIVE (NEGATIVE); PROTEIN,URINE NEGATIVE (NEGATIVE); UROBILINOGEN,URINE 0.2 mg/dL (0.2-1.0)
[2020-11-14 19:10] LABS: BACTERIA,URINE Few /HPF (None Seen); RBC,URINE 0-1 /HPF (0-1); WBC,URINE 0-1 /HPF (0-1); YEAST,URINE BUDDING Few /HPF (None Seen)
[2020-11-14 19:12] LABS: SQUAMOUS EPITHELIAL CELL,UR Rare /HPF (0-2)
[2020-11-14 19:13] LABS: AMORPHOUS SEDIMENT,UR Few /LPF (None Seen)
[2020-11-14 19:14] LABS: ABG BASE EXCESS -8.3 mmol/L (-2.0-3.0); ABG HCO3 15.8 mmol/L (21.0-28.0); ABG OXYGEN SATURATION 97.3 % (95.0-99.0); ABG PCO2 29 mmHg (35-48)
[2020-11-14] MEDS ORDERED: ONDANSETRON HCL 4 MG/2 ML VIAL ONE (19:57)
[2020-11-14] MEDS ORDERED: CEFEPIME HCL 2 GM VIAL ONE (19:57)
[2020-11-14] MEDS ORDERED: SODIUM CHLORIDE 0.9% 100 ML IV ONE (19:58)
[2020-11-14] MEDS ORDERED: MORPHINE SULFATE 2 MG/ML 1ML SYG ONE (19:58)
[2020-11-14] MEDS ORDERED: LACTATED RINGERS 1000ML 1,000 ML IV ONE (19:58)
[2020-11-14] MEDS ORDERED: ACETAMINOPHEN 650 MG SUPPOSITORY RC PRN (20:15)
[2020-11-14] MEDS ORDERED: GLUCAGON 1MG KIT 1 MG ML IM PRN (20:15)
[2020-11-14] MEDS ORDERED: ACETAMINOPHEN 325 MG TAB PO PRN (20:15)
[2020-11-14] MEDS ORDERED: DEXTROSE 50%-WATER 50 ML DISP.SYRIN IV PRN (20:15)
[2020-11-14] MEDS: FAMOTIDINE/PF 20 MG/2 ML VIAL IV SCH (21:00)
[2020-11-14] MEDS: CEFEPIME HCL 2 GM VIAL IVP SCH (21:00)
[2020-11-14 23:47] LABS: HEMATOCRIT 22.6 % (42-54)
[2020-11-15] MEDS ORDERED: ALBUTEROL SULFATE 0.083% 2.5 MG/3 ML INH IH SCH
[2020-11-15] MEDS ORDERED: LACTATED RINGERS 1000ML 1,000 ML IV ONE (02:53)
[2020-11-15 04:57] LABS: HEMATOCRIT 26.7 % (42-54)
[2020-11-15] MEDS: LINEZOLID 600 MG/ISO-OSM 300 ML IV SCH ×2 (05:15→17:15)
[2020-11-15 05:23] LABS: POTASSIUM 6.9 mmol/L (3.5-5.1)
[2020-11-15] MEDS ORDERED: SODIUM POLYSTYRENE SULFONATE 15 GM/60 ML ML ONE ×5 (05:35→23:04)
[2020-11-15] MEDS ORDERED: DEXTROSE 50%-WATER 50 ML DISP.SYRIN IV ONE ×2 (05:36→17:29)
[2020-11-15] MEDS ORDERED: SODIUM BICARB 50MEQ 50ML VIAL 50 ML ONE ×2 (05:36→17:28)
[2020-11-15] MEDS ORDERED: INSULIN HUMULIN R 100 UNIT/ML 3ML ONE ×2 (05:37→17:29)
[2020-11-15 07:34] LABS: BASOPHILS % (AUTO) 0.2 % (0.0-5.0); LYMPHOCYTES % (AUTO) 2.1 % (21.0-51.0); MEAN CORPUSCULAR HEMOGLOBIN 28.1 pg (27.0-33.0); MEAN CORPUSCULAR HGB CONC 29.9 g/dL (32.0-36.0); MEAN CORPUSCULAR VOLUME 94.1 fL (79-99); MONOCYTES % (AUTO) 2.5 % (3.0-13.0); NEUTROPHILS % (AUTO) 92.2 % (40.0-77.0); NUCLEATED RED BLOOD CELLS 0.6 % (0.0-0.19); PLATELET COUNT (AUTO) 293 K/uL (130-400); RED BLOOD CELL COUNT(AUTO) 2.88 MIL/uL (4.50-6.20); RED CELL DISTRIBUTION WIDTH 17.4 % (11.0-15.5); WHITE BLOOD COUNT (AUTO) 24.7 K/uL (4.8-10.8)
[2020-11-15 08:15] LABS: ALBUMIN 1.4 g/dL (3.5-5.0); BILIRUBIN,TOTAL 0.4 mg/dL (0.2-1.0); CREATININE 4.2 mg/dL (0.5-1.5); TOTAL PROTEIN, SERUM 5.4 g/dL (6.0-8.3)
[2020-11-15] MEDS: DEXAMETHASONE SOD PHOSPHATE 10MG/ML 1ML VIAL IVP SCH (09:00)
[2020-11-15 09:26] LABS: POTASSIUM 6.3 mmol/L (3.5-5.1)
[2020-11-15] MEDS ORDERED: DEXAMETHASONE SOD PHOSPHATE 10MG/ML 1ML VIAL ONE (09:30)
[2020-11-15] MEDS ORDERED: SODIUM POLYSTYRENE SULFONATE 15 GM/60 ML ML PO SCH ×2 (09:30→13:45)
[2020-11-15 12:30] LABS: HEMATOCRIT 28.7 % (42-54)
[2020-11-15 12:48] LABS: CREATININE 4.3 mg/dL (0.5-1.5)
[2020-11-15 13:09] LABS: POTASSIUM 6.8 mmol/L (3.5-5.1)
[2020-11-15] MEDS ORDERED: ALBUTEROL INHALER 90MCG/INH IH SCH (15:55)
[2020-11-15] MEDS ORDERED: CALCIUM GLUCONATE 1 GM/10 ML VIAL IV ONE (17:43)
[2020-11-15 18:19] LABS: HEMATOCRIT 25.6 % (42-54)
[2020-11-15] MEDS: FAMOTIDINE/PF 20 MG/2 ML VIAL IV SCH (21:00)
[2020-11-15] MEDS: CEFEPIME HCL 2 GM VIAL IVP SCH (21:00)
[2020-11-15 21:26] LABS: ALBUMIN 1.3 g/dL (3.5-5.0); BILIRUBIN,TOTAL 0.3 mg/dL (0.2-1.0); CREATININE 4.4 mg/dL (0.5-1.5); TOTAL PROTEIN, SERUM 5.3 g/dL (6.0-8.3)
[2020-11-15 21:27] LABS: POTASSIUM 6.8 mmol/L (3.5-5.1)
[2020-11-15] MEDS ORDERED: FUROSEMIDE 10 MG/ML 4ML VIAL ONE (23:04)
[2020-11-16 01:34] LABS: HEMATOCRIT 25.9 % (42-54)
[2020-11-16] MEDS ORDERED: LACTATED RINGERS 1000ML 1,000 ML IV ONE (04:17)
[2020-11-16 04:41] LABS: BASOPHILS % (AUTO) 0.1 % (0.0-5.0); HEMATOCRIT 26.4 % (42-54); LYMPHOCYTES % (AUTO) 1.8 % (21.0-51.0); MEAN CORPUSCULAR HGB CONC 30.3 g/dL (32.0-36.0); MEAN CORPUSCULAR VOLUME 92.3 fL (79-99); NEUTROPHILS % (AUTO) 93.1 % (40.0-77.0); NUCLEATED RED BLOOD CELLS 0.5 % (0.0-0.19); PLATELET COUNT (AUTO) 296 K/uL (130-400); RED BLOOD CELL COUNT(AUTO) 2.86 MIL/uL (4.50-6.20); RED CELL DISTRIBUTION WIDTH 17.1 % (11.0-15.5)
[2020-11-16 04:44] LABS: WHITE BLOOD COUNT (AUTO) 30.6 K/uL (4.8-10.8)
[2020-11-16 04:52] LABS: CREATININE 4.5 mg/dL (0.5-1.5)
[2020-11-16] MEDS: LINEZOLID 600 MG/ISO-OSM 300 ML IV SCH ×2 (05:15→17:15)
[2020-11-16 05:34] LABS: POTASSIUM 6.4 mmol/L (3.5-5.1)
[2020-11-16 06:12] LABS: BAND NEUTROPHILS % (MANUAL) 2 % (0-2); LYMPHOCYTES % (MANUAL) 1 % (22-44); MAN.DIFF COMMENT-IMPRESSION MANUAL DIFFERENTIAL; METAMYELOCYTES % 1 % (0-0); MONOCYTES % (MANUAL) 1 % (2-9); PLATELET MORPHOLOGY COMMENT ADEQUATE; SEGMENTED NEUTROPHILS % 95 % (40-70)
[2020-11-16] MEDS ORDERED: DEXAMETHASONE SOD PHOSPHATE 10MG/ML 1ML VIAL ONE (07:31)
[2020-11-16] MEDS: DEXAMETHASONE SOD PHOSPHATE 10MG/ML 1ML VIAL IVP SCH (09:00)
[2020-11-16] MEDS ORDERED: ALBUTEROL SULFATE 0.083% 2.5 MG/3 ML INH IH ONE (14:56)
[2020-11-16] MEDS: ALBUTEROL SULFATE 0.083% 2.5 MG/3 ML INH IH SCH (19:20)
[2020-11-16] MEDS: FAMOTIDINE/PF 20 MG/2 ML VIAL IV SCH (21:00)
[2020-11-16] MEDS: CEFEPIME HCL 2 GM VIAL IVP SCH (21:00)
[2020-11-16] MEDS ORDERED: CEFEPIME HCL 2 GM VIAL ONE (21:07)
[2020-11-16] MEDS ORDERED: ONDANSETRON HCL 4 MG/2 ML VIAL ONE (21:07)
[2020-11-16] MEDS ORDERED: FAMOTIDINE/PF 20 MG/2 ML VIAL IV ONE (21:08)
[2020-11-17 01:00] VITALS: BP 146/50
[2020-11-17] MEDS: ALBUTEROL SULFATE 0.083% 2.5 MG/3 ML INH IH SCH ×4 (01:02→18:24)
[2020-11-17 03:44] VITALS: BP 119/65
[2020-11-17 05:07] LABS: BASOPHILS % (AUTO) 0.1 % (0.0-5.0); LYMPHOCYTES % (AUTO) 1.4 % (21.0-51.0); MEAN CORPUSCULAR HEMOGLOBIN 27.9 pg (27.0-33.0); MEAN CORPUSCULAR VOLUME 93.1 fL (79-99); MONOCYTES % (AUTO) 2.7 % (3.0-13.0); NEUTROPHILS % (AUTO) 94.2 % (40.0-77.0); NUCLEATED RED BLOOD CELLS 0.8 % (0.0-0.19); PLATELET COUNT (AUTO) 282 K/uL (130-400); RED CELL DISTRIBUTION WIDTH 17.2 % (11.0-15.5); WHITE BLOOD COUNT (AUTO) 26.6 K/uL (4.8-10.8)
[2020-11-17 05:42] LABS: ALBUMIN 1.5 g/dL (3.5-5.0); BILIRUBIN,TOTAL 0.4 mg/dL (0.2-1.0); CREATININE 4.4 mg/dL (0.5-1.5); TOTAL PROTEIN, SERUM 5.6 g/dL (6.0-8.3)
[2020-11-17] MEDS ORDERED: SODIUM POLYSTYRENE SULFONATE 15 GM/60 ML ML PO NR (07:15)
[2020-11-17] MEDS ORDERED: FUROSEMIDE 10 MG/ML 4ML VIAL IVP SCH (07:15)
[2020-11-17] MEDS ORDERED: CALCIUM CHLORIDE 100 MG/ML 10 ML SYG IVP SCH (07:45)
[2020-11-17] MEDS ORDERED: INSULIN HUMULIN R 100 UNIT/ML 3ML IV SCH (07:45)
[2020-11-17] MEDS ORDERED: DEXTROSE 50%-WATER 50 ML DISP.SYRIN IV SCH (07:45)
[2020-11-17] MEDS ORDERED: SODIUM POLYSTYRENE SULFONATE 15 GM/60 ML ML RC NR (07:45)
[2020-11-17] MEDS ORDERED: SODIUM BICARB 50MEQ 50ML VIAL IV SCH (07:45)
[2020-11-17 08:53] VITALS: BP 109/72
[2020-11-17] MEDS: DEXAMETHASONE SOD PHOSPHATE 10MG/ML 1ML VIAL IVP SCH (09:00)
[2020-11-17 12:18] VITALS: BP 114/64
[2020-11-17 17:03] VITALS: BP 110/60
[2020-11-17 19:20] VITALS: BP 105/90
== END 2020-11-17 20:18 | disposition hospice, home (50) | DRG 871 ==
LOC: EDH 12:52 → EDHIP 16:07 → 4BH 11-16 23:15
PROVIDERS: ADMIT Internal Medicine; ATTEND Internal Medicine
PROC: 06HY33Z Insertion of Infusion Device into Lower Vein, Percutaneous Approach (ICD-10-PCS; principal; 2020-11-14)
PROC: B54BZZA Ultrasonography of Right Lower Extremity Veins, Guidance (ICD-10-PCS; 2020-11-14)
PROC: 30233N1 Transfusion of Nonautologous Red Blood Cells into Peripheral Vein, Percutaneous Approach (ICD-10-PCS; 2020-11-14)
DX: A41.9 Sepsis, unspecified organism (principal); J96.01 Acute respiratory failure with hypoxia; R65.21 Severe sepsis with septic shock; E43 Unspecified severe protein-calorie malnutrition; G93.41 Metabolic encephalopathy; J15.9 Unspecified bacterial pneumonia; N17.9 Acute kidney failure, unspecified; N18.5 Chronic kidney disease, stage 5; D62 Acute posthemorrhagic anemia; I12.0 Hypertensive chronic kidney disease with stage 5 chronic kidney disease or end stage renal disease; C16.9 Malignant neoplasm of stomach, unspecified; C78.7 Secondary malignant neoplasm of liver and intrahepatic bile duct; J44.0 Chronic obstructive pulmonary disease with (acute) lower respiratory infection; Z66 Do not resuscitate; Z51.5 Encounter for palliative care; E87.5 Hyperkalemia; R13.10 Dysphagia, unspecified; Z20.828 Contact with and (suspected) exposure to other viral communicable diseases; F17.210 Nicotine dependence, cigarettes, uncomplicated; N40.0 Benign prostatic hyperplasia without lower urinary tract symptoms; E78.00 Pure hypercholesterolemia, unspecified; E11.22 Type 2 diabetes mellitus with diabetic chronic kidney disease; E11.65 Type 2 diabetes mellitus with hyperglycemia; E86.0 Dehydration; R54 Age-related physical debility; G30.9 Alzheimer's disease, unspecified; F02.80 Dementia in other diseases classified elsewhere, unspecified severity, without behavioral disturbance, psychotic disturbance, mood disturbance, and anxiety; R60.1 Generalized edema; F41.9 Anxiety disorder, unspecified; E03.9 Hypothyroidism, unspecified; E78.5 Hyperlipidemia, unspecified; Z79.899 Other long term (current) drug therapy; Z79.82 Long term (current) use of aspirin; Z93.4 Other artificial openings of gastrointestinal tract status; Z03.818 Encounter for observation for suspected exposure to other biological agents ruled out; Z68.22 Body mass index [BMI] 22.0-22.9, adult; Z80.9 Family history of malignant neoplasm, unspecified
CPT/HCPCS: 36415; 36600; 71045; 74176; 80048; 80053; 81001; 82270; 82550; 82803; 82948; 83605; 83690; 84132; 84145; 84484; 85014; 85018; 85025; 85378; 86850; 86900; 86901; 86923; 87040; 87088; 87426; 93005; 94640; 94664; 99291; G0378; J0610; J0692; J0696; J1100; J1815; J1940; J2020; J2405; J3490; J7030; J7070; J7120; P9016; U0003